=== PATIENT | male | born 1990 | race African-American/Black ===

== ENCOUNTER 2017-04-08 12:51 | Emergency (ER) | payer OTHER ==
[2017-04-08 13:19] VITALS: BP 139/79; PULSE 72; TEMP 98.2; BMI 32.1
--- NOTE | 2017-04-08 13:52 | PDOC ---
History of Present Illness - General Chief Complaint: Injury Stated Complaint: INJURY Time Seen by Provider: 04/08/17 13:22 History Source: Patient Exam Limitations: No Limitations - History of Present Illness Initial Comments: 04/08/17 13:36 CHIEF COMPLAINT: Patient reports that his right knee cap dislocated last night. Now with pain, edema and stiffness. HISTORY OF PRESENT ILLNESS: Patient is an otherwise healthy 27-year-old male, currently on no medication reports that he felt his right knee cap, dislocate last night, now with pain to generalized right knee. Edema to same, no deformity. REVIEW OF SYSTEMS: GENERAL: Afebrile, A&O x3 RESPIRATORY: No cough, wheezing, or hemoptysis. CARDIAC: No CP or SOB MUSCULOSKELETAL: Pain to right knee SKIN : No erythema, no edema, no bruising, no deformity. NEUROLOGICAL: Denies any numbness or tingling. PHYSICAL EXAM: GENERAL: The patient is awake, alert, and fully oriented, in no acute distress. HEAD: Normal with no signs of trauma. RESPIRATORY: Lungs clear bilaterally no rhonchi, rales, or wheezes CARDIAC: S1-S2 audible, no murmur rub or gallop EXTREMITIES: Decreased range of motion to right knee related to pain, no fluid appreciated, no bulge sign. No pain to superior or inferior patella. Negative drop test. Negative posterior leg test. No joint laxity noted, no ecchymosis, no deformity, no abrasions ,no edema. +3 popliteal pulse. Negative Homans sign. No calf pain or tenderness, no erythema or edema. MUSCULOSKELETAL: No spinal point tenderness. SKIN: Warm, Dry, normal turgor, no erythema, no edema no bruising. 04/09/17 09:14 Past History - Past Medical History Allergies/Adverse Reactions: Allergies Allergy/AdvReac Type Severity Reaction Status Date / Time Penicillins Allergy Mild Rash Verified 04/08/17 13:19 Home Medications: Ambulatory Orders Oxycodone HCl/Acetaminophen [Percocet 5-325 mg Tablet] 1 - 2 tab PO Q4H #24 tablet MDD 10 04/08/17 Other medical history: denies - Psycho/Social/Smoking Cessation Hx Suicidal Ideation: No Smoking History: Current some day smoker Number of Cigarettes Smoked Daily: 0 Information on smoking cessation initiated: No Hx Alcohol Use: Yes Drug/Substance Use Hx: No Substance Use Type: Marijuana *Physical Exam - Vital Signs Last Vital Signs Temp Pulse Resp BP Pulse Ox 98.2 F 72 20 139/79 98 04/08/17 13:10 04/08/17 13:10 04/08/17 13:10 04/08/17 13:10 04/08/17 13:10 ED Treatment Course - RADIOLOGY Radiology Studies Ordered: Category Date Time Status KNEE 3 POS-RIGHT [RAD] Stat Radiology 04/08/17 13:35 Ordered Medical Decision Making - Medical Decision Making 04/08/17 13:52 A/P: Patient here for evaluation of possible dislocation to right patella. 04/08/17 14:41 X-ray demonstrated swelling, patellar subluxation and linear [place] density in the lateral soft tissues adjacent to the superior to the patella. These findings could be related to an avulsion and dislocation of the patella and these findings should be correlated with MRI. An appointment was made at [address] Piedra. Knee immobilizer and crutches given to patient. Percocet one tablet for pain. I discussed the physical exam findings, ancillary test results and final diagnoses with the patient. I answered all of the patient's questions. The patient was satisfied with the care received and felt comfortable with the discharge plan and treatment plan. The patient will call follow-up and will return to the Emergency Department with any new, persistent or worsening symptoms. 04/09/17 09:14 *DC/Admit/Observation/Transfer Diagnosis at time of Disposition: Subluxation of knee Qualifiers: Encounter type: initial encounter Laterality: right Qualified Code(s): S83.101A - Unspecified subluxation of right knee, initial encounter - Discharge Dispostion Disposition: HOME Condition at time of disposition: Improved Admit: No - Prescriptions Prescriptions: Oxycodone HCl/Acetaminophen [Percocet 5-325 mg Tablet] 1 - 2 tab PO Q4H #24 tablet MDD 10 - Referrals Referrals: Modesto Piedra MD [Staff Physician] - (1 pm tomorrow.) - Patient Instructions Additional Instructions: 1. Please return to the emergency department with any redness, swelling, increased pain, or any other concerns. 2. Keep splint on. 3. Please follow up in the office of Dr. Piedra within a week if pain persists. 4. No weightbearing 5. Ice and elevate when at rest. 6. Motrin for pain - Post Discharge Activity Work/School Note: Back to Work
[2017-04-08] MEDS ORDERED: OXYCODONE/APAP 5/325MG COMBO TABLET ONE (14:45)
== END 2017-04-08 15:05 | disposition home or self-care (01) ==
LOC: JER 12:51 → JERFT 12:51
PROC: 2W3LX1Z Immobilization of Right Lower Extremity using Splint (ICD-10-PCS; principal; 2017-04-08)
DX: S83.101A Unspecified subluxation of right knee, initial encounter (principal); X50.1XXA Overexertion from prolonged static or awkward postures, initial encounter; Y93.89 Activity, other specified; Y92.89 Other specified places as the place of occurrence of the external cause; Y99.8 Other external cause status
CPT/HCPCS: 73562-TC-RT; 99281-25